=== PATIENT | male | born 1980 | race African-American/Black ===

== ENCOUNTER 2020-01-02 03:08 | Emergency (ER) | payer SELFPAY ==
[2020-01-02] MEDS ORDERED: ONDANSETRON 4 MG/2 ML (SDV) Z0FRAN IVP STA (03:27)
[2020-01-02] MEDS ORDERED: NS IV 1000 ML 1,000 ML IV STA (03:27)
--- NOTE | 2020-01-02 03:46 | ED General ---
General Stated Complaint: SUBSTANCE ABUSE Source of Information: Patient, EMS History of Present Illness Date Seen by Provider: Jan 02, 2020 Time Seen by Provider: 03:08 Initial Comments 39 yo male presents by EMS with complaints of having passed out on the side of the road after vomiting. Law enforcement had EMS transport him to be evaluated since he had passed out and was not responding for approximately 15-20 minutes. On arrival to the ED he was staring off and with a sternal rub he was looking around but not answering questions. He started talking and answering questions shortly after arriving in the ED. He was asking repetitive questions and kept saying he was fine. He was able to state his name and that he was at the hospital but could not say how he got here or why he was in the hospital. Despite being told repeatedly what was going on and what EMS told us had happened he continued to ask the same questions over and over. Allergies and Home Medications Allergies Coded Allergies: No Known Drug Allergies (Unverified , 01/02/20) Patient Home Medication List Home Medication List Reviewed: Yes Review of Systems Review of Systems Constitutional: no symptoms reported EENTM: no symptoms reported Respiratory: no symptoms reported Cardiovascular: no symptoms reported Gastrointestinal: nausea, vomiting Genitourinary: no symptoms reported Musculoskeletal: no symptoms reported Skin: no symptoms reported Psychiatric/Neurological: See HPI Past [id number] Hx Past Med/Social Hx: Reviewed Nursing Past Med/Soc Hx Patient Social History Recreational Drug Use: Yes Drug of Choice: Marijuana, Methamphetamine Smoking Status: Current Someday Smoker Recent Foreign Travel: No Contact w/Someone Who Travel: No Past Medical History Surgeries: Yes Orthopedic Respiratory: No Cardiac: Yes Hypertension Neurological: No Genitourinary: No Gastrointestinal: No Musculoskeletal: No Diabetes, Insulin dep HEENT: No Cancer: No Psychosocial: No Integumentary: No Physical Exam Vital Signs Vital Signs - First Documented 01/02/20 03:13 Pulse 103 Resp 16 B/P (MAP) 158/91 (113) Pulse Ox 96 O2 Delivery Room Air Capillary Refill : Height, Weight, BMI Height: '" Weight: lbs. oz. kg; BMI Method: General Appearance: No Apparent Distress, Obese HEENT: PERRL/EOMI (pupils 2-3 mm bilateral and symmetric), Pharynx Normal Neck: Full Range of Motion, Non Tender, Supple Respiratory: Chest Non Tender, No Accessory Muscle Use, No Respiratory Distress, Decreased Breath Sounds Cardiovascular: Regular Rate, Rhythm, Normal Peripheral Pulses Gastrointestinal: No Pulsatile Mass, Non Tender, Soft Extremity: Normal Capillary Refill, No Pedal Edema, Other (right lower leg prosthetic) Neurologic/Psychiatric: Alert, Oriented x3, general adjuster II-XII Norm as Tested Skin: Normal Color, Warm/Dry Progress/Results/Core Measures Suspected Sepsis SIRS Temperature: Pulse: Respiratory Rate: Laboratory Tests 01/02/20 03:23: White Blood Count 12.1H Blood Pressure / Mean: Laboratory Tests 01/02/20 03:23: Creatinine 1.01, Platelet Count 325, Total Bilirubin 0.3 Results/Orders Lab Results Laboratory Tests Test 01/02/20 03:23 Range/Units White Blood Count 12.1 H 4.3-11.0 10^3/uL Red Blood Count 4.97 4.35-5.85 10^6/uL Hemoglobin 13.8 13.3-17.7 G/DL Hematocrit 42 40-54 % Mean Corpuscular Volume 85 80-99 FL Mean Corpuscular Hemoglobin 28 25-34 PG Mean Corpuscular Hemoglobin Concent 33 32-36 G/DL Red Cell Distribution Width 13.2 10.0-14.5 % Platelet Count 325 130-400 10^3/uL Mean Platelet Volume 10.5 H 7.4-10.4 FL Immature Granulocyte % (Auto) 0 % Neutrophils (%) (Auto) 75 42-75 % Lymphocytes (%) (Auto) 17 12-44 % Monocytes (%) (Auto) 7 0-12 % Eosinophils (%) (Auto) 0 0-10 % Basophils (%) (Auto) 0 0-10 % Neutrophils # (Auto) 0.0 L 1.8-7.8 X 10^3 Lymphocytes # (Auto) 9.1 H 1.0-4.0 X 10^3 Monocytes # (Auto) 2.1 H 0.0-1.0 X 10^3 Eosinophils # (Auto) 0.9 H 0.0-0.3 10^3/uL Basophils # (Auto) 0.0 0.0-0.1 10^3/uL Immature Granulocyte # (Auto) 0.0 0.0-0.1 10^3/uL Sodium Level 140 135-145 MMOL/L Potassium Level 4.3 3.6-5.0 MMOL/L Chloride Level 102 98-107 MMOL/L Carbon Dioxide Level 22 21-32 MMOL/L Anion Gap 16 H 5-14 MMOL/L Blood Urea Nitrogen 10 7-18 MG/DL Creatinine 1.01 0.60-1.30 MG/DL Estimat Glomerular Filtration Rate > 60 BUN/Creatinine Ratio 10 Glucose Level 157 H 70-105 MG/DL Calcium Level 9.5 8.5-10.1 MG/DL Corrected Calcium 9.1 8.5-10.1 MG/DL Total Bilirubin 0.3 0.1-1.0 MG/DL Aspartate Amino Transf (AST/SGOT) 18 5-34 U/L Alanine Aminotransferase (ALT/SGPT) 21 0-55 U/L Alkaline Phosphatase 64 40-136 U/L Total Protein 7.4 6.4-8.2 GM/DL Albumin 4.5 3.2-4.5 GM/DL Lipase 42 8-78 U/L Salicylates Level < 0.3 L 5.0-20.0 MG/DL Acetaminophen Level < 10 L 10-30 UG/ML Serum Alcohol < 10 <10 MG/DL My Orders Orders - DWIGHT CROWLEY MD Ua Culture If Indicated (01/02/20:) Cbc With Automated Diff (01/02/20) Comprehensive Metabolic Panel (01/02/20) Alcohol (01/02/20:) Drug Screen Stat (Urine) (01/02/20:) Acetaminophen (01/02/20:23) Salicylate (01/02/20:23) Ekg Tracing (01/02/20:) Ed Iv/Invasive Line Start (01/02/20:) Monitor-Rhythm Ecg Trace Only (01/02/20:) Paez Cath (01/02/20:23) Ct Head Wo (01/02/20:) Lipase (01/02/20:23) Chest 1 View Ap/Pa Only (01/02/20:23) Ondansetron Injection (Zofran Injectio (01/02/20 03:27) Ns Iv 1000 Ml (Sodium Chloride 0.9%) (01/02/20 03:27) Vital Signs/I&O 01/02/20 01/02/20 03:13 04:18 Pulse 103 103 Resp 16 16 B/P (MAP) 158/91 (113) 158/91 (113) Pulse Ox 96 96 O2 Delivery Room Air Room Air Capillary Refill : Progress Note #1: Progress Note with his mental status change will order CT head, CXR, ECG, UA with UDS, Alcohol, Salicylate and Acetaminophen levels. 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 With him being out of it on arrival ordered a paez but when he had that taken into the room he was waking up more and decided to answer more questions and refused to urinate. Progress Note #2: Time: 03:55 Progress Note Labs do not show alcohol or acute significant changes to account for his mental status change. He continued to refuse to provide urine sample. He discovered that he did not have his 2nd phone on him and suddenly was very concerned that he needed to find the 2nd phone. He became so adamant that he needed to find the 2nd phone that he refused any further care and demanded to have IV removed and refused any further testing. Will discharge AGAINST MEDICAL ADVICE and pt states he understands he could or have problems from not staying but he felt he was fine and he just wanted to go. Departure Impression Primary Impression: Left against medical advice Additional Impression: Altered mental state Qualified Codes: R41.82 - Altered mental status, unspecified Disposition: 07 AGAINST MEDICAL ADVICE Condition: Against Medical Advice Departure-Patient Inst. Referrals: NO,LOCAL PHYSICIAN (PCP/Family) Primary Care Physician DWIGHT CROWLEY MD Jan 02, 2020 03:46
[2020-01-02 03:51] LABS: HEMATOCRIT 42 % (40-54); HEMOGLOBIN 13.8 G/DL (13.3-17.7); MEAN CORPUSCULAR HEMOGLOBIN 28 PG (25-34); MEAN CORPUSCULAR VOLUME 85 FL (80-99); WHITE BLOOD COUNT 12.1 10^3/uL (4.3-11.0)
[2020-01-02 03:52] LABS: BASOPHILS % (AUTO) 0 % (0-10); EOSINOPHILS % (AUTO) 0 % (0-10); LYMPHOCYTES % (AUTO) 17 % (12-44); MEAN CORPUSCULAR HGB CONC 33 G/DL (32-36); MEAN PLATELET VOLUME 10.5 FL (7.4-10.4); MONOCYTES % (AUTO) 7 % (0-12); NEUTROPHILS % (AUTO) 75 % (42-75); PLATELET COUNT 325 10^3/uL (130-400)
[2020-01-02 04:11] LABS: ALANINE AMINOTRANSFERASE 21 U/L (0-55); ALKALINE PHOSPHATASE 64 U/L (40-136); BILIRUBIN,TOTAL 0.3 MG/DL (0.1-1.0); BUN/CREATININE RATIO 10; CALCIUM 9.5 MG/DL (8.5-10.1); CARBON DIOXIDE 22 MMOL/L (21-32); CHLORIDE 102 MMOL/L (98-107); CREATININE SERUM 1.01 MG/DL (0.60-1.30); GFR ESTIMATED > 60; GLUCOSE 157 MG/DL (70-105); POTASSIUM 4.3 MMOL/L (3.6-5.0); SODIUM 140 MMOL/L (135-145)
[2020-01-02 04:12] LABS: ACETAMINOPHEN < 10 UG/ML (10-30); ALBUMIN 4.5 GM/DL (3.2-4.5); SALICYLATE < 0.3 MG/DL (5.0-20.0); TOTAL PROTEIN 7.4 GM/DL (6.4-8.2)
[2020-01-02 04:18] VITALS: BP 158/91
[2020-01-02 10:06] LABS: LYMPHOCYTES # (AUTO) 2.1 X 10^3 (1.0-4.0); MONOCYTES # (AUTO) 0.9 X 10^3 (0.0-1.0); NEUTROPHILS # (AUTO) 9.1 X 10^3 (1.8-7.8)
== END 2020-01-02 04:18 | disposition left against medical advice (07) ==
LOC: ER FS 03:17
DX: R41.82 Altered mental status, unspecified (principal); I10 Essential (primary) hypertension; F17.200 Nicotine dependence, unspecified, uncomplicated
CPT/HCPCS: 80053; 83690; 93041; 99284; G0480 ×3; 80320; 80329